=== PATIENT | female | born 1940 | race Caucasian/White ===

== ENCOUNTER → 2018-04-21 | Outpatient (CLI) | payer OTHER | LOC: CIMAGING 12:53 | PROVIDERS: ATTEND Physician Assistant Medical | DX: M50.321 Other cervical disc degeneration at C4-C5 level (principal); M48.02 Spinal stenosis, cervical region | CPT/HCPCS: 72125-PO ==

== ENCOUNTER 2018-08-13 08:36 | Emergency (ER) | payer OTHER ==
--- NOTE | 2018-08-13 09:18 | EDPHY ---
General Time Seen by Provider: 08/13/18 08:58 Narrative: CLINICAL IMPRESSION: Nondisplaced nasal bone fracture, facial contusions, nasal laceration ASSESSMENT/PLAN: 78-year-old female presents to the emergency department after a proper level fall in her bathroom today. Patient was attempting to sit on the toilet when she lost her balance and fell forward striking her nose on the ground. There was no loss of consciousness, she is alert and oriented on arrival, no focal neurological deficits. She is anticoagulated on Coumadin with a recent INR of 2.3. CT head, face, cervical spine are negative for acute intracranial bleed and C-spine fractures. She has degenerative changes. She has a nondisplaced nasal bone fracture. No other maxillofacial fractures identified. Patient was complaining of right upper arm pain and an x-ray of the right humerus is also negative. Tetanus reported up-to-date. No evidence of septal hematoma or significant septal deviation. Sutures placed in a small nasal laceration. Wound care discussed, signs and symptoms of infection reviewed. I did discuss mild concussion symptoms and encouraged the patient follow up with her primary care. Warning signs return to ED sooner outlined in person and with the patient 's daughter. DIFFERENTIAL DX: [ Differential includes but not limited to closed head injury with intracranial hemorrhage, facial contusions, facial laceration, maxillofacial fractures, acute C-spine or thoracic spine fractures, ED PROCEDURES: See lab and/or imaging results below Laceration Repair Verbal consent obtained by patient. Risks discussed, including but not limited to infection, pain, retained foreign body, need for additional repair, poor cosmetic result, tendon damage, nerve damage, poor wound healing, vascular damage. Alternatives to repair discussed. Cato protocol used to establish correct patient, procedure, equipment, support services rep, and site. Anesthesia obtained by topical application. Anesthetized with Lat. Laceration location bridge of nose, length 1 cm, depth 2 mm, Repair type simple. Patient was prepped and draped in usual sterile fashion. Hemostasis achieved with direct pressure. Wound explored through full range of motion and entire depth of wound probed and visualized with gloved finger. No suspicion for nerve damage, tendon damage, underlying fracture, vascular damage, foreign body, or contamination. Area was cleansed with Shur-Clens and irrigated with sterile saline as per protocol. No foreign body or material removed. Repair method 6 0 Prolene sutures simple interrupted. Three of sutures placed. Well aligned, closely approximated. wound was dressed with bacitracin. Patient tolerated well with no immediate complications. Wound care: Clean and dry x 24 hours, gently clean with soap and water, cover with topical antibiotic ointment/bandage. Suture/Staple removal: 5 Days ED COURSE: 10:50 a.m.: CT scan results discussed with the patient. Nondisplaced nasal bone fracture identified. Remainder of CT show no acute findings. Discussed with Radiology. Patient ambulated to the restroom on her own without difficulty. Wound will be repaired and patient will be discharged to follow up with primary care and ENT CHIEF COMPLAINT: Ground level fall, facial laceration HPI: This is a 78-year-old female with history of chronic fibromyalgia, chronic neck pain, hypertension, hypothyroidism, and atrial fibrillation who presents to the emergency department after she had a ground level fall in her bathroom this morning. Patient states she was standing in front of the toilet, pulling her pants down and lost her balance falling forward striking her face on the ground. She did not have loss of consciousness, was able to crawl to the bath tub and pull herself up and then call her family member for help. She is on Coumadin with an INR of 2.3 1 week ago. She did take her Coumadin last night. She is complaining of mid facial pain, laceration to the bridge of the nose, headache, and neck and upper back pain. She has chronic neck pain and believes that her pain is related to arthritis. She is followed by [facility] in gets steroid injections. She is also complaining of right upper arm pain. No reported new arm, hand or finger numbness or tingling. No dizziness, vertigo, chest pain, shortness of breath. She has not felt ill recently. She believes she fell simply because she lost her balance. No history of recent closed head injury, TIA or stroke. PAST MEDICAL HISTORY: Fibromyalgia, chronic neck and back pain, hypertension, hypothyroidism, atrial fibrillation, pacemaker See nurse/triage notes for additional history if applicable Pertinent Past Surgical History: Cholecystectomy, appendectomy, hysterectomy, left eye surgery Family History: Noncontributory Social History: Lives alone, otherwise healthy, nonsmoker, on Coumadin, here with her daughter REVIEW OF SYSTEMS: All other systems negative Constitutional: No fever, no chills, appetite change. Eyes: No discharge, vision change ENT: No sore throat, congestion, ear pain. Cardiovascular: No chest pain, no palpitations. Respiratory: No cough, no shortness of breath. Gastrointestinal: No abdominal pain, no vomiting, diarrhea. Genitourinary: No hematuria, dysuria, flank pain, pelvic pain Musculoskeletal: Positive for back pain, joint swelling, positive for right upper arm pain, myalgias. Skin: No rashes, color change. Neurological: Positive for headache, denies dizziness, weakness. PHYSICAL EXAM: General Appearance: Alert, oriented, appropriate, cooperative, NAD, well hydrated, non-toxic appearing, VSS, no hypoxia, overweight, answering all questions appropriately. HEENT: TMs are clear bilaterally no perforation or FB, no injection, no evidence of serous or mucopurulent otitis. No hemotympanum or Figueroa sign Oropharynx clear is no erythema or exudates, no tonsillar hypertrophy or asymmetry. Dentition without abnormality. No malocclusion. Pain to palpation along the bridge of the nose associated with a vertically oriented 1 cm laceration over the bridge of the nose. No obvious deformity or palpable step- off. Pain radiates laterally to bilateral zygomatic regions and maxilla. No intraoral laceration or dental injury Eyes: PERRLA, no acute vision change, nystagmus, swelling, discharge, pain or photosensitivity. Conjunctiva pink, no pallor or injection Neck: Supple, nontender, no lymphadenopathy, reproducible midline pain see 5 through C7. Patient reports this is chronic but does appear uncomfortable with palpation. FROM, no meningismus. Respiratory: There are no retractions, lungs are clear to auscultation. No chest wall pain to palpation Cardiac: Regular rate and rhythm, no murmurs or gallops. Gastrointestinal: Abdomen is soft, nontender, bowel sounds normal, no masses/ hernia, no rigidity, guarding or focal peritoneal findings. Neurological: Alert and oriented x 3, CN 2-12 grossly intact, normal gait no ataxia, DTR's intact, normal sensation and strength Skin: Warm, dry, no rashes, no nodules on palpation. Musculoskeletal: Extremities are symmetrical, full range of motion, reproducible tenderness to the distal aspect of the right humerus. No visible contusion, swelling or, deformity, or erythema. Psychiatric: Patient is oriented X 3, there is no agitation. MEDICAL DECISION MAKING: Patient was seen independently. Secondary supervising physician at time of evaluation was Dr. Morin . Diagnosis: Nondisplaced nasal bone fracture, nasal laceration, facial contusions , ground level fall . New, requires workup Summary: See Assessment and Plan for summary of ED visit Clinical lab tests: Not ordered. Independent visualization of images, tracing, or specimens: Yes. Decision to obtain medical records or history from someone other than the patient: No Review / Summarize previous medical records: No Discussed patient with another provider: Discussed with radiology, CT and all x- rays negative for acute findings aside from a nondisplaced nasal bone fracture. Patient Progress: Improved. - Diagnostics Imaging Results: Imaging Impressions Head CT 08/13/18 09:10 Impression: 1. Nondisplaced nasal bone fracture. 2. No acute intracranial findings. 3. Diffuse cerebral atrophy with periventricular and subcortical low attenuation consistent with chronic microvascular ischemic gliosis. Findings discussed with Sean Gomez 08/13/2018 at 10:48. Cervical Spine CT 08/13/18 09:11 Impression: 1. No acute findings. If pain persists and clinical suspicion warrants, consider flexion extension cervical spine (or MRI if the patient's pacemaker is MRI compatible). 2. Grossly stable multilevel degenerative change and spondylolistheses. Findings discussed with Sean Gomez on 08/13/2018 at 10:[address] 08/13/18 09:11 Impression: 1. Nondisplaced nasal bone fracture. 2. No acute intracranial findings. 3. Diffuse cerebral atrophy with periventricular and subcortical low attenuation consistent with chronic microvascular ischemic gliosis. Findings discussed with Sean Gomez 08/13/2018 at 10:48. Humerus X-Ray 08/13/18 09:11 Impression: No acute osseous findings. Thoracic Spine X-Ray 08/13/18 09:11 Impression: 1. No acute findings. 2. Degenerative change and spondylolistheses as above.. - History Smoking Status: Former smoker - Objective Vital Signs: Initial Vital Signs Temperature (C) 36.5 C 08/13/18 08:42 Heart Rate 84 08/13/18 08:42 Respiratory Rate 19 08/13/18 08:42 Blood Pressure 152/75 H 08/13/18 08:42 O2 Sat (%) 97 08/13/18 08:42 O2 Delivery Mode Room Air Allergies/Adverse Reactions: penicillin V potassium [From Pen-Vee K] Allergy (Verified 08/13/18 08:45) Sulfa (Sulfonamide Antibiotics) Allergy (Verified 08/13/18 08:45) BANDAIDS Allergy (Mild, Uncoded 08/13/18 08:45) RASH/ITCH HAYFEVER Allergy (Mild, Uncoded 08/13/18 08:45) Other-Enter Comments Home Medications: Medication Instructions Recorded Allopurinol [Allopurinol 300 MG 300 mg PO DAILY 01/15/13 (RX)] Furosemide [Lasix 20 MG (*)] 20 mg PO DAILY 01/15/13 Levothyroxine [Synthroid 88 mcg 88 mcg PO DAILY06 01/15/13 (*)] Calcium Carbonate [Oyster Shell 500 mg PO DAILY 10/06/14 Calcium 500 mg (*)] Herbals/Supplements -Info Only 1 ea PO DAILY 10/06/14 Lisinopril [Zestril 10 mg (*)] 10 mg PO DAILY 10/06/14 Multivitamins [Multivitamin (*)] 1 each PO DAILY 10/06/14 [place]-3 Fatty Acids [Fish Oil 1000 1,000 mg PO DAILY 10/06/14 mg (*)] Potassium Cl [Klor-Con 10 meq (RX)] 10 meq PO DAILY 10/06/14 Warfarin Sodium [Coumadin 3MG (*)] 3 mg PO HS 10/06/14 Cetirizine HCl [Zyrtec] 10 mg PO DAILY PRN 01/24/16 Estradiol [VAGIFEM] 10 mcg VG MOTH 01/24/16 Medications Given: Discontinued Medications Tetracaine/Epinephrine/Lidocaine (Let Gel Topical) 1 ea TP EDNOW ONE Stop: 08/13/18 09:24 Last Admin: 08/13/18 09:30 Dose: 1 ea Departure - Departure Disposition: Home, Routine, Self-Care Clinical Impression: Fall from ground level Nasal laceration Qualifiers: Encounter type: initial encounter Qualified Code(s): S01.21XA - Laceration without foreign body of nose, initial encounter Nasal bone fracture Qualifiers: Encounter type: initial encounter Fracture type: closed Qualified Code(s): S02.2XXA - Fracture of nasal bones, initial encounter for closed fracture Facial contusion Qualifiers: Encounter type: initial encounter Qualified Code(s): S00.83XA - Contusion of other part of head, initial encounter Condition: Good Instructions: Nasal Fracture (ED), Laceration (ED) Additional Instructions: DISCHARGE INSTRUCTIONS FROM YOUR DOCTOR Thank you for visiting our emergency department today. Please keep in mind that discharge from the emergency department does not mean that there is nothing wrong - it simply means that we have not identified an emergency condition that requires further evaluation or treatment in the hospital. You should always plan to follow up with primary care for re-evaluation of your condition in the next 2-3 days. If you have been referred to a specialist, please call as soon as possible (today or tomorrow) to schedule your follow up appointment at the appropriate time. [THIS CT SCANS OF YOUR FACE, HEAD, AND CERVICAL SPINE SHOWED NO ACUTE BLEEDING, FACIAL FRACTURES, OR NECK FRACTURES. YOU HAVE A SMALL NONDISPLACED NASAL BONE FRACTURE. X-RAYS OF THE ARM AND THORACIC SPINE ALSO SHOWED ONLY DEGENERATIVE CHANGES WITH NO ACUTE FRACTURE. SUTURES WERE PLACED ON THE NASAL LACERATION. PLEASE HAVE SUTURES/OLIVER REMOVED IN DAYS. YOU CAN RETURN TO THE EMERGENCY DEPARTMENT OR YOUR PRIMARY CARE FOR SUTURE/STAPLE REMOVAL. AVOID SUBMERGING SUTURES/OLIVER UNDERWATER FOR PROLONGED PERIOD OF TIME UNTIL REMOVED. KEEP WOUND CLEAN AND DRY, COVER WITH ANTIBIOTIC OINTMENT AND BAND-AID. RETURN TO EMERGENCY DEPARTMENT FOR REDNESS, SWELLING, DISCHARGE, WARMTH TO THE SKIN, OR ANY OTHER CONCERNS FOR INFECTION. PLEASE FOLLOW-UP WITH PRIMARY CARE IN 2-3 DAYS. AND EAR NOSE AND THROAT REFERRAL WAS ALSO GIVEN. PLEASE RETURN TO THE EMERGENCY DEPARTMENT IMMEDIATELY FOR SEVERE HEADACHE, ALTERED MENTAL STATUS, SEIZURE ACTIVITY, SEVERE FACIAL PAIN, UNEXPLAINED VOMITING, ACUTE VISION OR HEARING CHANGES, OR ANY OTHER CONCERNS. ] People present with illnesses and injuries in different ways, and it is always possible that we have missed something. You may always return for re-evaluation if symptoms worsen or if they are not improving or if you develop new/different symptoms. Again, thank you for choosing our emergency department. We hope that you feel better. Referrals: Yanet Lino MD [Primary Care Provider] - As per Instructions Barbra Dueñas MD [[facility] [place] Primary Care Provider] - As per Instructions
[2018-08-13] MEDS ORDERED: LET GEL TOPICAL 1 EA SYR TP ONE (09:23)
[2018-08-13 11:43] VITALS: BP 110/83
== END 2018-08-13 11:46 | disposition home or self-care (01) ==
PROC: 0HQ1XZZ Repair Face Skin, External Approach (ICD-10-PCS; principal; 2018-08-13)
DX: S02.2XXA Fracture of nasal bones, initial encounter for closed fracture (principal); S01.21XA Laceration without foreign body of nose, initial encounter; W18.39XA Other fall on same level, initial encounter; Y92.002 Bathroom of unspecified non-institutional (private) residence as the place of occurrence of the external cause; M79.621 Pain in right upper arm; M54.6 Pain in thoracic spine; I48.91 Unspecified atrial fibrillation; I10 Essential (primary) hypertension; E03.9 Hypothyroidism, unspecified; M79.7 Fibromyalgia; M54.2 Cervicalgia; G89.29 Other chronic pain; Z79.01 Long term (current) use of anticoagulants; Z87.891 Personal history of nicotine dependence